=== PATIENT | male | born 1940 | race Caucasian/White ===

== ENCOUNTER 2024-09-28 13:48 | Inpatient (IN) | payer MEDICARE ==
[2024-09-28 15:26] LABS: #Basophils 0.07 10x3/uL (0.0-0.2); %Basophils 0.7 % (0.0-1.0); %Eosinophils 6.5 % (0.0-10.0); %Lymphocytes 8.8 % (21.0-51.0); %Monocytes 6.4 % (0.0-10.0); Hematocrit 27.4 % (42.0-52.0); Hemoglobin 8.8 g/dL (14.0-18.0); Mean Corpuscular HGB CONC 32.1 g/dL (32.0-36.0); Mean Corpuscular Hemoglobin 31.3 pg (27.0-31.0); Mean Corpuscular Volume 97.5 fL (78.0-98.0); Mean Platelet Volume 11.1 fL (7.4-10.4); Platelet Count 234 10x3/uL (130-400); RBC Distribution Width 17.9 % (11.5-14.5); Red Blood Cell (RBC) Count 2.81 mill/uL (4.70-6.10)
[2024-09-28 15:41] LABS: INR-International Normal Ratio 1.3; PTT 39.1 sec (22.9-36.1); Prothrombin Time 16.4 sec (12.0-14.7)
[2024-09-28 15:47] LABS: ALT (SGPT) 15 U/L (8-55); AST (SGOT) 28 U/L (5-34); Albumin 2.9 g/dL (3.4-4.8); Alkaline Phosphatase 111 U/L (40-110); Anion Gap 12 mmol/L (10-20); BUN (Urea Nitrogen) 25 mg/dL (8.4-25.7); Bilirubin, Total 0.7 mg/dL (0.2-1.2); Calc. Creatinine Clearance 0 mL/min (70-130); Calcium 8.5 mg/dL (7.8-10.44); Carbon Dioxide 25 mmol/L (23-31); Chloride 109 mmol/L (98-107); Estimated GFR 38; Globulin 2.7 g/dL (2.4-3.5); Glucose 89 mg/dL (83-110); Lipase 88 U/L (8-78); Magnesium 2.5 mg/dL (1.6-2.6); Potassium 3.8 mmol/L (3.5-5.1); Protein, Total 5.6 g/dL (5.8-8.1); Sodium 142 mmol/L (136-145)
[2024-09-28 15:54] LABS: Troponin I 0.099 ng/mL (< 0.028)
[2024-09-28 16:10] LABS: Bacteria/HPF None Seen HPF (None Seen); Bilirubin Negative (Negative); Blood, Urine Negative (Negative); CAUTI Indications for Culture Alt mental st,lethar; Clarity Clear (Clear); Glucose, Urine (Dipstick) Normal (Negative); Ketone, Urine Negative (Negative); Leukocyte Negative Leu/uL (Negative); Nitrite Negative (Negative); Protein, Urine (Dipstick) 20 mg/dL (Neg-Trace); Specific Gravity, Urine 1.016 (1.002-1.036); Squamous Epithelial 0-3 HPF (0-3); Urobilinogen Normal mg/dL (Less than 2); pH, Urine 7.5 (5.0-9.0)
[2024-09-28 16:40] LABS: RBC/HPF 0-3 HPF (0-3)
[2024-09-28 16:41] LABS: Urine Culture Reflex No No
[2024-09-28] MEDS ORDERED: Fleet Saline Enema 133 ML BOT ONE (17:07)
[2024-09-28] MEDS ORDERED: Ondansetron ODT 4 MG TAB PO PRN (19:18)
[2024-09-28] MEDS ORDERED: Acetaminophen 325 MG TAB PO PRN (19:18)
[2024-09-28] MEDS ORDERED: Zolpidem Tartrate 5 MG TAB PO PRN (19:18)
[2024-09-28] MEDS ORDERED: Senokot S 8.6-50 MG TAB PO PRN (19:18)
[2024-09-28 19:32] LABS: Troponin I 0.095 ng/mL (< 0.028)
[2024-09-28] MEDS ORDERED: Famotidine 20 MG TAB ONE (20:36)
[2024-09-28 20:37] VITALS: BMI 24.3
[2024-09-28] MEDS: Famotidine 20 MG TAB PO SCH (21:02)
[2024-09-28 23:10] LABS: Troponin I 0.078 ng/mL (< 0.028)
[2024-09-29 00:23] LABS: #Basophils 0.05 10x3/uL (0.0-0.2); %Basophils 0.6 % (0.0-1.0); %Eosinophils 5.5 % (0.0-10.0); %Lymphocytes 8.8 % (21.0-51.0); %Monocytes 6.7 % (0.0-10.0); Hematocrit 25.7 % (42.0-52.0); Hemoglobin 8.1 g/dL (14.0-18.0); Mean Corpuscular HGB CONC 31.5 g/dL (32.0-36.0); Mean Corpuscular Hemoglobin 31.3 pg (27.0-31.0); Mean Corpuscular Volume 99.2 fL (78.0-98.0); Mean Platelet Volume 10.9 fL (7.4-10.4); Platelet Count 211 10x3/uL (130-400); RBC Distribution Width 17.7 % (11.5-14.5); Red Blood Cell (RBC) Count 2.59 mill/uL (4.70-6.10)
[2024-09-29 03:50] LABS: #Basophils 0.06 10x3/uL (0.0-0.2); %Basophils 0.7 % (0.0-1.0); %Eosinophils 6.2 % (0.0-10.0); %Lymphocytes 10.5 % (21.0-51.0); %Monocytes 6.7 % (0.0-10.0); %Neutrophils 75.5 % (42.0-75.0); Hematocrit 26.6 % (42.0-52.0); Hemoglobin 8.4 g/dL (14.0-18.0); Mean Corpuscular HGB CONC 31.6 g/dL (32.0-36.0); Mean Corpuscular Hemoglobin 31.5 pg (27.0-31.0); Mean Corpuscular Volume 99.6 fL (78.0-98.0); Mean Platelet Volume 11.1 fL (7.4-10.4); Platelet Count 242 10x3/uL (130-400); RBC Distribution Width 17.8 % (11.5-14.5); Red Blood Cell (RBC) Count 2.67 mill/uL (4.70-6.10)
[2024-09-29 04:07] LABS: ALT (SGPT) 14 U/L (8-55); AST (SGOT) 25 U/L (5-34); Albumin 2.7 g/dL (3.4-4.8); Alkaline Phosphatase 104 U/L (40-110); Anion Gap 13 mmol/L (10-20); BUN (Urea Nitrogen) 22 mg/dL (8.4-25.7); Bilirubin, Total 0.7 mg/dL (0.2-1.2); Calc. Creatinine Clearance 36 mL/min (70-130); Calcium 8.2 mg/dL (7.8-10.44); Carbon Dioxide 23 mmol/L (23-31); Chloride 111 mmol/L (98-107); Estimated GFR 41; Globulin 2.5 g/dL (2.4-3.5); Glucose 83 mg/dL (83-110); Potassium 4.1 mmol/L (3.5-5.1); Protein, Total 5.2 g/dL (5.8-8.1); Sodium 143 mmol/L (136-145)
[2024-09-29] MEDS ORDERED: Senokot S 8.6-50 MG TAB PO PRN (07:55)
[2024-09-29] MEDS ORDERED: Pantoprazole DR 40 MG TAB ONE (09:21)
[2024-09-29] MEDS ORDERED: Polyethylene Glycol 3350 17 GM Packet ONE (09:24)
[2024-09-29] MEDS: Polyethylene Glycol 3350 17 GM Packet PO SCH (09:26)
[2024-09-29] MEDS ORDERED: Pantoprazole 40 MG VIAL ONE (09:31)
[2024-09-29] MEDS: Pantoprazole 40 MG VIAL IVP SCH (09:39)
[2024-09-29] MEDS: Mineral Oil ENEMA PR SCH (11:42)
[2024-09-29] MEDS ORDERED: Bisacodyl 10 MG SUPP ONE (11:58)
[2024-09-29] MEDS: Bisacodyl 10 MG SUPP PR SCH (12:15)
[2024-09-29] MEDS: Sodium Ferric Gluconate 250 MG in Sodium Chloride 0.9% 250 ML 250 ML IVPB SCH (12:27)
[2024-09-29] MEDS ORDERED: Melatonin 3 MG TAB PO PRN (13:06)
[2024-09-29] MEDS: Fleet Saline Enema 133 ML BOT PR SCH (17:43)
[2024-09-29] MEDS: Atorvastatin Calcium 40 MG TAB PO SCH (21:12)
[2024-09-30 05:13] LABS: Hematocrit 26.5 % (42.0-52.0); Hemoglobin 8.3 g/dL (14.0-18.0); Mean Corpuscular HGB CONC 31.3 g/dL (32.0-36.0); Mean Corpuscular Hemoglobin 31.2 pg (27.0-31.0); Mean Corpuscular Volume 99.6 fL (78.0-98.0); Mean Platelet Volume 10.7 fL (7.4-10.4); Platelet Count 239 10x3/uL (130-400); Red Blood Cell (RBC) Count 2.66 mill/uL (4.70-6.10)
[2024-09-30 05:38] LABS: Anion Gap 16 mmol/L (10-20); BUN (Urea Nitrogen) 19 mg/dL (8.4-25.7); Calc. Creatinine Clearance 43 mL/min (70-130); Calcium 7.9 mg/dL (7.8-10.44); Carbon Dioxide 19 mmol/L (23-31); Chloride 109 mmol/L (98-107); Estimated GFR 51; Glucose 57 mg/dL (83-110); Magnesium 2.4 mg/dL (1.6-2.6); Phosphorus 3.5 mg/dL (2.3-4.7); Potassium 3.8 mmol/L (3.5-5.1); Sodium 140 mmol/L (136-145)
[2024-09-30] MEDS: Aspirin 81 mg Enteric Coated Tablet PO SCH (09:35)
[2024-09-30 12:22] VITALS: BP 137/69; TEMP 98.2
[2024-09-30] MEDS: Escitalopram Oxalate 10 mg Tablet PO SCH (12:41)
[2024-10-01] MEDS ORDERED: FLU (Fluad Triv) TS24-25 (65UP)/MF59C/PF 45 MCG/0.5 ML Syringe IM ONE (09:00)
== END 2024-09-30 13:01 | disposition home or self-care (01) | DRG 388 ==
LOC: ERS 13:48 → ERHOLD 18:03 → OBSVTOIN 19:18 → 2SE 09-29 13:30
PROVIDERS: ADMIT Family Medicine; ATTEND Internal Medicine
DX: K56.41 Fecal impaction (principal); G93.41 Metabolic encephalopathy; I21.A1 Myocardial infarction type 2; N17.9 Acute kidney failure, unspecified; I25.10 Atherosclerotic heart disease of native coronary artery without angina pectoris; N18.30 Chronic kidney disease, stage 3 unspecified; D64.9 Anemia, unspecified; E86.0 Dehydration; I12.9 Hypertensive chronic kidney disease with stage 1 through stage 4 chronic kidney disease, or unspecified chronic kidney disease; Z95.1 Presence of aortocoronary bypass graft; Z79.899 Other long term (current) drug therapy
CPT/HCPCS: 36415; 36416; 70450; 70496; 70498; 71045; 74177; 80048; 80053; 81001; 82274; 83690; 83735; 84100; 84484; 85025; 85027; 85610; 85730; 93005; 94760; 97139; J2470; J2916; J7050